=== PATIENT | male | born 1960 | race Caucasian/White ===

== ENCOUNTER 2016-04-10 19:01 | Inpatient (IN) | END 2016-04-13 16:30 | disposition home or self-care (01) | DRG 69 | DX: G45.9 Transient cerebral ischemic attack, unspecified (principal); E11.40 Type 2 diabetes mellitus with diabetic neuropathy, unspecified; R47.01 Aphasia; G81.91 Hemiplegia, unspecified affecting right dominant side; I16.1 Hypertensive emergency; Z79.4 Long term (current) use of insulin; Z79.84 Long term (current) use of oral hypoglycemic drugs; Z79.82 Long term (current) use of aspirin ==